=== PATIENT | female | born 1995 | race Caucasian/White ===

== ENCOUNTER 2020-01-22 12:52 | Emergency (ER) | payer MEDICAID ==
[~2020-01-22] VITALS: Ht 167.6 cm; Wt 58.5 kg
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
--- NOTE | 2020-01-22 13:40 | NUR ---
SEEN AND EXAMINED BY .
--- NOTE | 2020-01-22 14:00 | NUR ---
COMPUTATIONAL SCIENCES PROFESSOR AT BEDSIDE FOR XRAY.
--- NOTE | 2020-01-22 14:02 | NUR ---
AT BEDSIDE FOR EVAL.
--- NOTE | 2020-01-22 14:55 | NUR ---
PT IS WHEELED TO CT SCAN VIA WHEELCHAIR.
--- NOTE | 2020-01-22 16:10 | NUR ---
VELCRO WRIST SPLINT APPLIED.
[2020-01-22] MEDS ORDERED: IBUPROFEN 600 MG TABLET PO ONE ×2 (16:30→16:32)
--- NOTE | 2020-01-22 16:48 | NUR ---
Patient discharged to home in stable condition. Written and verbal after care instructions given. Patient verbalizes understanding of instruction.
[2020-01-22 16:50] VITALS: BP 108/62
== END 2020-01-22 16:50 | disposition home or self-care (01) ==
LOC: ER 12:52
DX: S00.83XA Contusion of other part of head, initial encounter (principal); M25.531 Pain in right wrist; V49.49XA Driver injured in collision with other motor vehicles in traffic accident, initial encounter; Y93.89 Activity, other specified; Y92.413 State road as the place of occurrence of the external cause; Y99.8 Other external cause status
CPT/HCPCS: 70486-TC; 71045-TC; 73110